=== PATIENT | female | born 1950 | race Two or more races ===

== ENCOUNTER 2018-07-12 01:01 | Emergency (ER) | payer MEDICARE, OTHER ==
--- NOTE | 2018-07-12 02:29 | ED Physician Documentation ---
History of Present Illness - Stated complaint Stated Complaint: POSS RXN TO COOKIEW/ MARIJUANA - Chief complaint Chief Complaint: General - History obtained from History obtained from: Patient, Family - History of Present Illness Timing: Enter time (2229), Last night - Additonal information Additional information: 68-year-old female who is visiting here from [place] went out and had some wine with her friend and they did get a marijuana cookie from a friend that was homemade and the patient herself took about a quarter of this and she began to feel some dryness to her mouth and she began to have some twitching to her body. The symptoms have now resolved. She was concerned that she may be having some sort of reaction to this and she is come to the emergency department. She does state that she has had some experience with marijuana previously she has never had a reaction like this and she thinks that the marijuana cookie may have been in the freezer for more than a year. Review of Systems Constitutional: denies: Fever, Chills, Myalgias Eyes: denies: Decreased vision Ears: denies: Ear pain Nose: denies: Congestion Throat: denies: Dental pain / toothache, Sore throat Cardiac: denies: Chest pain / pressure, Palpitations Respiratory: denies: Dyspnea, Cough GI: denies: Abdominal Pain, Nausea, Vomiting : denies: Dysuria, Frequency Skin: denies: Rash Musculoskeletal: denies: Neck pain, Back pain, Extremity pain Neurologic: denies: Generalized weakness, Focal weakness, Numbness PD PAST MEDICAL HISTORY - Past Medical History Past Medical History: No - Past Surgical History Past Surgical History: Yes /[employer]BE[employer]: Oophrectomy - Present Medications Home Medications: Ambulatory Orders Medication Instructions Recorded Confirmed Simvastatin [Zocor] 1 tab PO DAILY 07/12/18 07/12/18 - Allergies Allergies/Adverse Reactions: Allergies Allergy/AdvReac Type Severity Reaction Status Date / Time No Known Drug Allergies Allergy Verified 07/12/18 01:14 - Social History Does the pt smoke?: No Smoking Status: Never smoker Does the pt drink ETOH?: Yes ETOH Use: Liquor Does the pt have substance abuse?: No - Immunizations Immunizations are current?: Yes - POLST Patient has POLST: No PD ED PE NORMAL - Vitals Vital signs reviewed: Yes (tachy and hypertensive ) - General General: Alert and oriented X 3, No acute distress, Well developed/nourished - HEENT HEENT: Atraumatic, PERRL, EOMI - Neck Neck: Supple, no meningeal sign, No bony TTP, No JVD - Cardiac Cardiac: RRR, No murmur - Respiratory Respiratory: No respiratory distress, Clear bilaterally - Abdomen Abdomen: Soft, Non tender - Back Back: No CVA TTP, No spinal TTP - Derm Derm: Normal color, Warm and dry, No rash - Extremities Extremities: No deformity, No edema - Neuro Neuro: Alert and oriented X 3, nurse practitioner per diem 2-12 intact, No motor deficit, No sensory deficit, Normal speech Eye Opening: Spontaneous Motor: Obeys Commands Verbal: Oriented GCS Score: 15 - Psych Psych: Normal mood, Normal affect Results - Vitals Vitals: Vital Signs - 24 hr 07/12/18 01:05 Temperature 98.4 C H Heart Rate 108 H Respiratory 18 Rate Blood Pressure 146/76 H O2 Saturation 98 Oxygen O2 Source Room air PD MEDICAL DECISION MAKING - ED course Complexity details: considered differential, d/w patient, d/w family ED course: 68-year-old female with ingestion of a marijuana cookie with some untoward side effects has had resolution of her symptoms and she is discharged home. Departure - Departure Disposition: 01 Home, Self Care Clinical Impression: Side effect of drug Condition: Stable Instructions: ED Drug React Adverse Other Follow-Up: Your, doctor [Other]
[2018-07-12 02:41] VITALS: BP 111/64
== END 2018-07-12 02:41 | disposition home or self-care (01) ==
LOC: ED 01:01
DX: T40.7X1A Poisoning by cannabis (derivatives), accidental (unintentional), initial encounter (principal); R25.3 Fasciculation; R68.2 Dry mouth, unspecified
CPT/HCPCS: 99282; 99283